=== PATIENT | female | born 1995 | race Caucasian/White ===

== ENCOUNTER → 2018-09-19 | Outpatient (REF) | payer OTHER | LOC: M SFHCLERA 10:27 | PROVIDERS: ATTEND Physician Assistant | DX: J02.9 Acute pharyngitis, unspecified (principal) ==

== ENCOUNTER → 2021-03-12 | Outpatient (CLI) | payer OTHER ==
[~2021-03-12] MED LIST: PRENTAB7 PO; VENTAER INH
--- NOTE | 2021-03-12 11:40 | REP ---
INDICATION: DATING AND VIABILITY. COMPARISON: None. TECHNIQUE: Transvesical and transvaginal imaging FINDINGS: The uterus measures 9.3 by 4.2 x 6.4 cm. Within the uterus there is an anechoic structure with increased echoes surrounding it consistent with a decidual reaction. Within the gestational sac there is a 2nd anechoic structure consistent with a yolk sac. There is also echogenic material seen consistent with a pole the mean crown-rump length measurement of which is consistent with an 8 week 2 day gestational age. Doppler interrogation of the pole shows no evidence of cardiac activity. Both maternal ovaries are within normal limits. IMPRESSION: There is evidence to suggest demise. Follow-up is recommended. A phone call was placed to discuss these findings with the patient's healthcare provider. <Electronically signed by Jas Geronimo > 03/12/21 [id number]
== END ==
LOC: M WHC 09:49
PROVIDERS: ATTEND Advanced Practice Midwife
DX: O36.80X0 Pregnancy with inconclusive fetal viability, not applicable or unspecified (principal); Z3A.00 Weeks of gestation of pregnancy not specified

== ENCOUNTER → 2021-03-17 | Outpatient (CLI) | payer OTHER | LOC: M LABSMTC 12:17 | PROVIDERS: ATTEND Anesthesiology | DX: Z01.812 Encounter for preprocedural laboratory examination (principal); Z20.822 Contact with and (suspected) exposure to COVID-19 ==

== ENCOUNTER 2021-03-18 12:05 | Day surgery (SDC) | payer OTHER ==
[~2021-03-18] VITALS: Ht 172.7 cm; Wt 76.7 kg
[~2021-03-18 12:05] MED LIST changes: +LIDOCAINE 1% MDV 20ML VIAL SQ PRN; +LR 1,000 ML IV ONE
[2021-03-18 12:38] LABS: HEMATOCRIT 42.7 % (36.0-47.0); HEMOGLOBIN 14.5 g/dl (12.0-15.5); MEAN CORPUSCULAR HEMOGLOBIN 28.9 pg (27.0-33.0); MEAN CORPUSCULAR VOLUME 85.2 fl (80.0-96.0); PLATELET COUNT, AUTOMATED 186 10^3/uL (150-450); RED BLOOD COUNT 5.01 10^6/uL (4.00-5.40); WHITE BLOOD COUNT 8.2 10^3/uL (4.0-10.0)
[2021-03-18] MEDS ORDERED: propofoL 200 MG/20 ML VIAL As Ordered ONE (14:45)
[2021-03-18] MEDS ORDERED: MIDAZOLAM INJ 2MG/2ML VIAL (J2250 PER 1MG) As Ordered ONE (14:45)
[2021-03-18] MEDS ORDERED: fentaNYL 100 MCG/2 ML INJECTION (J3010) As Ordered ONE (14:45)
[2021-03-18] MEDS ORDERED: LIDOCAINE 2% 100MG/5ML SDV (FOR ANES.) As Ordered ONE (14:45)
[2021-03-18] MEDS ORDERED: SCOPOLAMINE 1MG TRANSDERMAL PATCH As Ordered ONE (15:19)
[2021-03-18] MEDS ORDERED: ONDANSETRON 4MG/2ML VIAL As Ordered ONE (15:35)
[2021-03-18] MEDS ORDERED: METOCLOPRAMIDE INJ 10MG/2ML VIAL (J2765 PER 1) As Ordered ONE (15:35)
[2021-03-18] MEDS ORDERED: KETOROLAC 60MG 2ML VIAL As Ordered ONE (15:35)
[2021-03-18] MEDS ORDERED: dexameTHASONE 4 MG/ML 1ML VIAL (J1100 PER 1MG) As Ordered ONE (15:35)
[2021-03-18] MEDS ORDERED: fentaNYL 100 MCG/2 ML INJECTION (J3010) IV PRN (16:35)
[2021-03-18] MEDS ORDERED: DOXYCYCLINE HYCLATE 100MG TABLET PO ONE (16:35)
[2021-03-18] MEDS ORDERED: ONDANSETRON 4MG/2ML VIAL IV PRN (16:35)
[2021-03-18] MEDS ORDERED: LR 1,000 ML IV SCH (16:35)
[2021-03-18] MEDS ORDERED: MEPERIDINE INJ 25 MG/ML VIAL (J2175) IV PRN (16:35)
[2021-03-18] MEDS ORDERED: ACETAMINOPHEN 500 MG TAB PO ONE (17:00)
[2021-03-18 17:03] VITALS: BP 127/76
--- NOTE | 2021-03-18 18:14 | ROOPDOC ---
[facility] Report Of Operation Report of Operation DATE OF PROCEDURE: 03/18/21 PREPROCEDURE DIAGNOSES: Missed , 8 weeks gestation. POSTPROCEDURE DIAGNOSES: Same PROCEDURE PERFORMED: Suction D, E, & C procedure. SURGEON: Valentín Martines MD ANESTHESIA: General via LMA. ESTIMATED BLOOD LOSS: Approximately 100 mL. COMPLICATIONS: None. FINDINGS: Moderate POC's PROCEDURE NOTE: The patient was taken to the operating room where LMA anesthesia was induced. She was prepped and draped in a sterile fashion in the dorsal lithotomy position. A speculum was placed in the vagina. The anterior cervix was grasped with a tenaculum. The cervix was dilated with tapered dilators. A number 9 mm suction curette was placed through the internal os. Suction device was activated and the curette was gently rotated until products of conception were noted coming through the suction tubing. Sharp curettage was performed. The uterine cavity was deemed empty. All instruments were removed. Sponge and instrument counts were correct. The patient went to the recovery room in stable condition.. VALENTÍN MARTINES MD Mar 18, 2021 18:14
== END 2021-03-18 17:05 | disposition home or self-care (01) ==
LOC: M SDC 12:05
PROVIDERS: ATTEND Specialist
DX: O02.1 Missed abortion (principal); J45.909 Unspecified asthma, uncomplicated
CPT/HCPCS: 36415; 59820; 85027; 86850; 86900; 86901; 88305; J1100; J1885; J2250; J2405; J2765; J3010

== ENCOUNTER → 2021-06-01 | Outpatient (CLI) | payer OTHER ==
[~2021-06-01] MED LIST changes: -LIDOCAINE 1% MDV 20ML VIAL SQ PRN; -LR 1,000 ML IV ONE
== END ==
LOC: M PLALAB 10:58
PROVIDERS: ATTEND Specialist
DX: N92.6 Irregular menstruation, unspecified (principal)

== ENCOUNTER → 2024-10-28 | Outpatient (CLI) | payer OTHER ==
[~2024-10-28] MED LIST changes: +LIDOCAINE 1% MDV 20 ML VIAL As Ordered ONE
[2024-10-28 14:26] VITALS: TEMP 98.1
[2024-10-28 15:12] VITALS: BP 128/78; O2SAT 100
== END ==
LOC: M IRPRO 13:51
PROVIDERS: ATTEND Otolaryngology
DX: R59.0 Localized enlarged lymph nodes (principal)